=== PATIENT | female | born 1955 | race Caucasian/White ===

== ENCOUNTER 2017-01-19 21:08 | Emergency (ER) | payer MEDICARE ==
[2017-01-19 18:21] LABS: BASOPHILS 0.3 %; BASOPHILS ABSOLUTE 0.01 10/3/uL (0.0-0.16); EOSINOPHILS 0.3 %; EOSINOPHILS ABSOLUTE 0.01 10/3/uL (0.0-0.53); ER CBC TAT 0 Hrs 07 Mins; HEMOGLOBIN 11.3 g/dL (12.0-16.0); IMMATURE GRANULOCYTES 0.6 %; IMMATURE GRANULOCYTES ABSOLUTE 0.02 10/3/uL (0.0-0.11); LYMPHOCYTES 15.5 %; MANUAL DIFF NO %; MEAN CORPUS HGB CONC 33.2 g/dL (32.0-36.0); MEAN CORPUSCULAR HEMOGLOB 29.5 pg (26.0-34.0); MEAN CORPUSCULAR VOLUME 88.8 fL (80-100); MEAN PLATELET VOLUME 9.6 fL (9.2-13.0); MONOCYTES 5.6 %; MONOCYTES ABSOLUTE 0.18 10/3/uL (0.21-1.20); NEUTROPHILS 77.7 %; PLATELET COUNT 166 10/3/uL (150-400); RBC DISTRIBUTION WIDTH 14.5 % (12.0-16.0); RED CELL COUNT 3.83 10/6/uL (4.0-5.6); WHITE BLOOD CELLS 3.2 10/3/uL (4.5-10.5)
[2017-01-19 18:26] LABS: ASCORBIC ACID (UR NOT ORDER) NEG (NEG); BILIRUBIN, URINE NEGATIVE (NEG); KETONE, URINE NEGATIVE (NEG); LEUKOCYTE ESTERASE(NOT OR NEG (NEG); NITRITE (URINE) NEG (NEG); WBC (NOT ORDERED) (RFLEX) 1 (0-5)
[2017-01-19 18:39] LABS: A/G RATIO 1.3 (0.7-1.9); CALCIUM, SERUM 9.7 MG/DL (8.5-10.4); CHLORIDE, SERUM 110 MMOL/L (96-112); CO2 (CARBON DIOXIDE) 26 MMOL/L (24-34); CREATININE 1.66 MG/DL (0.55-1.02); GFR AFRICAN AMERICAN 38 ML/MIN (>=60); GFR NON AFRICAN AMERICAN 33 ML/MIN (>=60); GLOBULIN 3.1 G/DL (2.5-4.1); GLUCOSE, SERUM 143 MG/DL (60-99); POTASSIUM, SERUM 4.5 MMOL/L (3.5-5.3); SGOT(AST) 11 U/L (5-40); SGPT(ALT) 24 U/L (5-65); SODIUM, SERUM 142 MMOL/L (135-148); TOTAL PROTEIN 7.1 G/DL (6.0-8.5)
[2017-01-19 18:44] LABS: ALKALINE PHOSPHATASE 106 U/L (45-117); BUN (BLOOD UREA NITROGEN) 28 MG/DL (6-23)
[2017-01-19 21:04] LABS: ACETONE NEG
[2017-01-19 21:08] LABS: ULTRASENSITIVE TSH 0.176 MCIU/ML (0.358-3.740)
[~2017-01-19 21:08] MED LIST: ACET500CAP PO; ALORA0.05 MG TD; AMB5 PO; ASAB PO; AUG500 PO; BUM1 PO; CEFT2 PO; CELEXA20 PO; CELLCEPT2 PO; CELLCEPT5 PO; CENTRUM TAB1 TAB PO; CIP2 PO; CYCLOSPORIN PO; CYCLOSPORINE25 MG OR; CYCLOSPORINE25 MG PO; DEXILANT PO; ELIQUIS 2.5 MG2.5 MG PO; EPOGEN10000 MG/M SC; ESTRACE0.5 MG PO; FLAG500TAB PO; FLORINEF0.1 MG PO; GARAOINT15 TOP; GENGRAF PO; GENGRAF25 MG PO; KAPIDEX60 MG PO; KDUR20 PO; KLOR-CON M2020 MEQ PO; LANTUS SC; LEVAQUIN5T PO; LEVOTHYROXIN100 MCG PO; LEVOTHYROXIN150 MCG PO; LEVOTHYROXIN88 MCG PO; LIPITOR10 PO; LIPITOR20 PO; LORT7 PO; MCZ25 PO; MIRALAXPKT PO; MIRAPEX250 PO; MULTIPLE VIT PO; MULTIVIT/MIN PO; NORCO1 TA1 PO; NORV5; NORV5 PO; NOVOLOG SC; P10 PO; P5 PO; PCET PO; PHOSLO PO; PR25 PO; PREV30 PO; PROAMATINE10 MG PO; PROCRIT10 SC; PROCRIT40 IV; PROGRAF1; PROGRAF1 PO; REG PO; REQUIP5 PO; ROCALTROL 0.0.25 MCG PO; ROCALTROL0.25 MCG PO; ROCALTROL0.5 MCG PO; ROMYCIN OP; ROMYCIN OPH; SB325 PO; SODBICAR10 PO; SYN.15 PO; SYN1 PO; SYN125 PO; SYN88 PO; TOBRAMYCIN IV; TUMSROLL PO; VITAMIN D1000 UNI1 PO; ZOFRAN4 PO; [UNRECOGNIZED DRUG - OTHER] PO
== END 2017-01-19 21:46 | disposition home or self-care (01) ==
LOC: ER 21:08
PROVIDERS: Emergency Medicine
DX: E11.65 Type 2 diabetes mellitus with hyperglycemia (principal); N18.9 Chronic kidney disease, unspecified; Z79.52 Long term (current) use of systemic steroids; Z79.899 Other long term (current) drug therapy
CPT/HCPCS: 80053; 81001; 82009; 82962; 84443; 85025; 99285